=== PATIENT | female | born 1930 | race Caucasian/White ===

== ENCOUNTER → 2017-02-20 | Outpatient (REF) ==
[2017-02-20 17:29] LABS: THYROID STIMULATING HORMONE 0.027 uIU/mL (0.465-4.680)
== END ==
LOC: ZLAB.WCH 16:21
PROVIDERS: Nurse Practitioner Family
DX: Z01.89 Encounter for other specified special examinations (principal)

== ENCOUNTER → 2017-02-20 | Outpatient (CLI) | payer MEDICARE, BC | LOC: ZCOL.LAB 16:16 | DX: Z01.89 Encounter for other specified special examinations (principal) ==

== ENCOUNTER → 2017-05-16 | Outpatient (REF) | LOC: ZLAB.WCH 18:21 | DX: Z01.89 Encounter for other specified special examinations (principal) ==

== ENCOUNTER → 2017-08-08 | Outpatient (REF) ==
[~2017-08-08] MED LIST: ADVIL200 MG PO; LOPRESSOR 225 MG/TAB PO; MIRALAX 255 GM255 GM PO; SYNTHROID0.075 MG/T; ULTRAM 50MG TAB50 MG PO; XALATAN EYE DROPS OD
[2017-08-08 18:49] LABS: THYROID STIMULATING HORMONE 1.19 uIU/mL (0.465-4.680)
== END ==
LOC: ZLAB.WCH 18:06
PROVIDERS: Nurse Practitioner Family
DX: Z01.89 Encounter for other specified special examinations (principal)

== ENCOUNTER 2017-08-17 10:03 | Outpatient (CLI) | payer MEDICARE, BC ==
[2017-08-17] VITALS (9 sets, daily range): BP systolic 145–198; BP diastolic 72–111; PULSE 77–92; TEMP 98.3
[~2017-08-17] VITALS: Ht 152.4 cm; Wt 38.6 kg
[2017-08-17] MEDS ORDERED: SYNTHROID0.075 MG/T (10:34)
[2017-08-17] MEDS ORDERED: XALATAN EYE DROPS OD (10:35)
[2017-08-17] MEDS ORDERED: MIRALAX 255 GM255 GM PO (10:35)
[2017-08-17] MEDS ORDERED: LOPRESSOR 225 MG/TAB PO (10:36)
[2017-08-17] MEDS ORDERED: ADVIL200 MG PO (10:37)
[2017-08-17] MEDS ORDERED: ULTRAM 50MG TAB50 MG PO (10:39)
== END 2017-08-17 15:15 | disposition home or self-care (01) ==
LOC: EUO 10:03 → COL.CAR 10:15 → EUO 15:15
DX: M48.54XA Collapsed vertebra, not elsewhere classified, thoracic region, initial encounter for fracture (principal)
CPT/HCPCS: C1713; J2250; J3010

== ENCOUNTER → 2018-05-18 | Outpatient (CLI) | payer MEDICARE, BC ==
[~2018-05-18] MED LIST changes: +FLEXERIL 1010 MG/TAB PO; +NORCO 325 MG-7.1 TAB PO; +PRESERVISION1 SGL PO
[2018-05-18 14:24] LABS: CALCIUM 9.8 mg/dL (8.4-10.2); CREATININE, serum 0.69 mg/dL (0.52-1.25); POTASSIUM 4.3 mmol/L (3.4-5.0)
== END ==
LOC: COL.RAD 11:52
PROVIDERS: Family Medicine
DX: S22.070A Wedge compression fracture of T9-T10 vertebra, initial encounter for closed fracture (principal); I10 Essential (primary) hypertension; S22.080A Wedge compression fracture of T11-T12 vertebra, initial encounter for closed fracture

== ENCOUNTER → 2018-06-08 | Outpatient (REF) ==
[~2018-06-08] MED LIST changes: +COREG12.5 MG PO; +FORTICAL200 IU/ACT NS; +MAXIMUM D310000 IU PO; +NEURONTIN100 MG/CAP PO; +NORVASC 10MG10 MG PO; +ZESTRIL 20MG TA20 MG PO
[2018-06-08 18:41] LABS: THYROXINE (T4)-TOTAL 15.1 ug/dL (5.5-11.0)
[2018-06-08 18:54] LABS: THYROID STIMULATING HORMONE 1.23 uIU/mL (0.465-4.680)
== END ==
LOC: ZLAB.WCH 18:10
PROVIDERS: Family Medicine
DX: Z01.89 Encounter for other specified special examinations (principal)